=== PATIENT | female | born 1955 | race Caucasian/White ===

== ENCOUNTER 2017-12-25 14:59 | Outpatient (CLI) | payer BC | END 2017-12-25 15:00 | disposition home or self-care (01) | LOC: BICRAD 14:59 | PROVIDERS: ATTEND Family Medicine | DX: M79.644 Pain in right finger(s) (principal); M19.041 Primary osteoarthritis, right hand ==

== ENCOUNTER 2017-12-25 15:19 | Outpatient (CLI) | payer BC | END 2017-12-25 15:20 | disposition home or self-care (01) | LOC: BICMAMMO 15:19 | PROVIDERS: ATTEND Family Medicine | DX: Z12.31 Encounter for screening mammogram for malignant neoplasm of breast; Z80.3 Family history of malignant neoplasm of breast; I10 Essential (primary) hypertension | CPT/HCPCS: 77063; 77067 ==

== ENCOUNTER 2018-10-10 12:20 | Outpatient (CLI) | payer BC ==
--- NOTE | 2018-10-10 14:48 | RAD ---
LEFT HIP TWO VIEWS: 10/10/2018 HISTORY: Arthritis. Hip pain. COMPARISON: None. FINDINGS: There is mild superior joint space narrowing. There is mild acetabular osteophyte formation on the l eft, laterally. There is no displaced fracture or dislocation seen. IMPRESSION: No acute findings. POS: [facility]
== END 2018-10-10 12:21 | disposition home or self-care (01) ==
LOC: BICRAD 12:20
PROVIDERS: ATTEND Family Medicine
DX: M19.90 Unspecified osteoarthritis, unspecified site (principal)
CPT/HCPCS: 36415; 83520; 85652; 86200

== ENCOUNTER 2018-10-24 12:32 | Outpatient (CLI) | payer BC | END 2018-10-24 12:33 | disposition home or self-care (01) | LOC: ULT 12:32 | PROVIDERS: ATTEND Family Medicine | DX: I08.8 Other rheumatic multiple valve diseases (principal) | CPT/HCPCS: 93306 ==

== ENCOUNTER 2019-02-04 15:00 | Outpatient (CLI) | payer BC | END 2019-02-04 15:01 | disposition home or self-care (01) | LOC: SLEEPLAB 15:00 | PROVIDERS: ATTEND Family Medicine | DX: G47.33 Obstructive sleep apnea (adult) (pediatric) (principal); R53.83 Other fatigue; R06.83 Snoring; I10 Essential (primary) hypertension | CPT/HCPCS: 95806 ==

== ENCOUNTER 2019-02-05 10:21 | Outpatient (CLI) | payer BC ==
--- NOTE | 2019-02-05 10:56 | MMO ---
Bilateral MAMMO Bilat Screen [facility]. CLINICAL HISTORY: Patient is 63 years old and is seen for screening. The patient has the following family history of breast cancer: paternal grandmother, at age 95. The patient has no personal history of cancer. VIEWS: The views performed were: bilateral craniocaudal with tomosynthesis and bilateral mediolateral oblique with tomosynthesis. FILMS COMPARED: The present examination has been compared to prior imaging studies performed at [facility] on 06/09/2010, 06/14/2011, 01/02/2013, 07/03/2014 and 12/25/2017. MAMMOGRAM FINDINGS: The breasts are heterogeneously dense, which could obscure a lesion on mammography. There are no suspicious masses, suspicious calcifications, or new areas of architectural distortion. IMPRESSION: THERE IS NO MAMMOGRAPHIC EVIDENCE OF MALIGNANCY. A ROUTINE FOLLOW-UP MAMMOGRAM IN 1 YEAR IS RECOMMENDED. THE RESULTS OF THIS EXAM WERE SENT TO THE PATIENT. ACR BI-RADS Category 1 - Negative MAMMOGRAPHY NOTE: 1. A negative mammogram report should not delay a biopsy if a dominant of clinically suspicious mass is present. 2. Approximately 10% to 15% of breast cancers are not detected by mammography. 3. Adenosis and dense breasts may obscure an underlying neoplasm.
== END 2019-02-05 10:22 | disposition home or self-care (01) ==
LOC: BICMAMMO 10:21
PROVIDERS: ATTEND Family Medicine
DX: Z12.31 Encounter for screening mammogram for malignant neoplasm of breast (principal); Z80.3 Family history of malignant neoplasm of breast
CPT/HCPCS: 77063; 77067

== ENCOUNTER 2020-03-04 11:09 | Outpatient (CLI) | payer BC ==
--- NOTE | 2020-03-04 12:02 | MMO ---
Bilateral MAMMO Bilat Screen [facility]. CLINICAL HISTORY: Patient is 64 years old and is seen for screening. The patient has the following family history of breast cancer: paternal grandmother, at age 95. The patient has no personal history of cancer. VIEWS: The views performed were: bilateral craniocaudal with tomosynthesis and bilateral mediolateral oblique with tomosynthesis. FILMS COMPARED: The present examination has been compared to prior imaging studies performed at [facility] on 01/02/2013, 07/03/2014, 12/25/2017 and 02/05/2019. This study has been interpreted with the assistance of computer-aided detection. MAMMOGRAM FINDINGS: The breasts are heterogeneously dense, which could obscure a lesion on mammography. There are stable benign appearing calcifications seen in both breasts. There are no suspicious masses, suspicious calcifications, or new areas of architectural distortion. IMPRESSION: THERE IS NO MAMMOGRAPHIC EVIDENCE OF MALIGNANCY. A ROUTINE FOLLOW-UP MAMMOGRAM IN 1 YEAR IS RECOMMENDED. THE RESULTS OF THIS EXAM WERE SENT TO THE PATIENT. ACR BI-RADS Category 2 - Benign finding MAMMOGRAPHY NOTE: 1. A negative mammogram report should not delay a biopsy if a dominant of clinically suspicious mass is present. 2. Approximately 10% to 15% of breast cancers are not detected by mammography. 3. Adenosis and dense breasts may obscure an underlying neoplasm. Reported by: JACQUELINE CASTRO MD Electonically Signed: [id number]
== END 2020-03-04 11:10 | disposition home or self-care (01) ==
LOC: BICMAMMO 11:09
DX: Z12.31 Encounter for screening mammogram for malignant neoplasm of breast (principal); Z80.3 Family history of malignant neoplasm of breast
CPT/HCPCS: 77063; 77067

== ENCOUNTER 2021-03-05 11:30 | Outpatient (CLI) | payer BC | END 2021-03-05 11:31 | disposition home or self-care (01) | LOC: BICMAMMO 11:30 | DX: Z12.31 Encounter for screening mammogram for malignant neoplasm of breast (principal); Z80.3 Family history of malignant neoplasm of breast | CPT/HCPCS: 77063; 77067 ==

== ENCOUNTER 2022-05-19 10:29 | Outpatient (CLI) | payer BC | END 2022-05-19 10:30 | disposition home or self-care (01) | LOC: BICMAMMO 10:29 | DX: N63.10 Unspecified lump in the right breast, unspecified quadrant (principal) | CPT/HCPCS: 77063; 77067 ==